=== PATIENT | female | born 1950 | race Caucasian/White ===

== ENCOUNTER 2019-10-20 14:18 | Emergency (ER) | payer MEDICARE, MEDICAID ==
[2019-10-20 14:27] VITALS: BP 118/56; PULSE 48
[2019-10-20] MEDS ORDERED: Midazolam 1 MG/ML 2 ML SDV IVPUSH ONE (14:30)
[2019-10-20] MEDS ORDERED: Succinylcholine 200 MG/10 ML MDV IV ONE (14:30)
[2019-10-20] MEDS ORDERED: Etomidate 2 MG/ML 20 ML SDV IVPUSH ONE (14:30)
[2019-10-20] MEDS ORDERED: Propofol 200 MG/20 ML SDV IVPUSH ONE ×2 (14:30→14:57)
[2019-10-20] MEDS ORDERED: Midazolam 1 MG/ML 2 ML SDV ONE (14:43)
[2019-10-20] MEDS ORDERED: Midazolam Oral Soln 10 MG/5 ML UD Cup PO ONE (14:57)
[2019-10-20] MEDS ORDERED: Sodium Chloride 0.9% 1,000 ML IV SCH ×3 (15:00→15:45)
--- NOTE | 2019-10-20 15:09 | CR ---
INDICATIONS: Shortness of air. Post intubation. TECHNIQUE: Chest 1 AP portable supine view. COMPARISON: Chest radiograph 10/04/2016. FINDINGS: Endotracheal tube is directed toward the right lateral wall of the trachea and terminates 4.8 cm above the irving. No pneumothorax or definite pleural effusion. There is opacity at the left lung base which is similar in appearance. Lungs are otherwise clear. Cardiac and mediastinal contours are otherwise unchanged. Upper abdomen and osseous structures as imaged show no acute abnormality. IMPRESSION: 1. Endotracheal tube terminates 4.8 cm above the irving. This is directed toward the right lateral wall of the trachea and may need to be slightly repositioned. 2. Left basilar opacity is similar in appearance. Lungs are otherwise clear. Dictated by Ronny Gómez MD @ 10/20/2019 3:08:08 PM Dictated by: Ronny Gómez MD @ 10/20/2019 15:08:14 (Electronically Signed)
--- NOTE | 2019-10-20 15:13 | EDM.PDOC ---
ED HPI GENERAL MEDICAL PROBLEM - General Chief Complaint: Respiratory Problem Stated Complaint: ASPIRATION Time Seen by Provider: 10/20/19 14:30 Source of Information: Reports: EMS History Limitations: Reports: Altered Mental Status (obtunded!) - History of Present Illness INITIAL COMMENTS - FREE TEXT/NARRATIVE: This 69 year old female was admitted from [facility] via EMS at approx. 2:15PM due to possible aspiration and not breathing well. Her color was reported to be cyanotic. She was reported to have a oxygen sat of 90% on non-rebreather mask but was as low as 86%. She is a DNI by record but is NOT a DNI. She has gurgling breath sounds and if she has not aspirated she soon will. Because she is NOT and DNI, we will protect her airway for now and place her on a vent for an hour and see how she does. My understanding that she is a stone of the court so, I will assume that decision. Onset: Sudden Severity: Severe (Unable to protect her airway.) Improves with: Reports: None Worsens with: Reports: None Context: Reports: Other (Altered mental status and is now intubated for airway protection.) Associated Symptoms: Reports: Shortness of Breath - Related Data Allergies Allergy/AdvReac Type Severity Reaction Status Date / Time erythromycin base Allergy Cannot Verified 09/29/16 20:04 Remember dust Allergy Cannot Uncoded 09/29/16 20:04 Remember Home Meds: Home Meds Acetaminophen [Tylenol] 325 mg PO DAILY PRN 09/20/16 [History] Calcium Citrate/Vitamin D3 [Calcium Citrate-Vit D Caplet] 1 each PO BID [History] Docusate Sodium [Colace] 200 mg PO BEDTIME 09/20/16 [History] Levothyroxine Sodium [Tirosint] 75 mcg PO DAILY 09/20/16 [History] Polyethylene Glycol 3350 [Miralax] 17 gm PO DAILY 09/20/16 [History] Pantoprazole [ProTONIX] 40 mg PO BIDAC #60 tab.cr 09/21/16 [Rx] Amoxicillin/Potassium Clav [Augmentin 875-125 Tablet] 1 each PO BID #14 tablet 10/05/16 [Rx] ClonazePAM [KlonoPIN] 2 mg PO TID #15 tablet 10/05/16 [Rx] Linezolid [Zyvox] 600 mg PO Q12H #14 tablet 10/05/16 [Rx] Past Medical History HEENT History: Reports: None Cardiovascular History: Reports: None Respiratory History: Reports: None Gastrointestinal History: Reports: Other (See Below) Other Gastrointestinal History: Dysphagia. Hypo-osmolality and Hyponatremia Genitourinary History: Reports: UTI, Recurrent [employer] History: Reports: None Musculoskeletal History: Reports: Other (See Below) Other Musculoskeletal History: Generalized muscle weakness Neurological History: Reports: Cerebral Palsy, Other (See Below) Other Neuro History: Convulsions Psychiatric History: Reports: Other (See Below) Other Psychiatric History: Profound intellectual disabilities. Sequelae following unspecified cerebrovascular disease Endocrine/Metabolic History: Reports: None Hematologic History: Reports: Iron Deficiency Immunologic History: Reports: None Oncologic (Cancer) History: Reports: None Dermatologic History: Reports: Other (See Below) Other Dermatologic History: MRSA - Infectious Disease History Infectious Disease History: Reports: MRSA - Past Surgical History Head Surgeries/Procedures: Reports: None HEENT Surgical History: Reports: None Cardiovascular Surgical History: Reports: None Respiratory Surgical History: Reports: None Endocrine Surgical History: Reports: None Social & Family History - Family History Family Medical History: Noncontributory HEENT: Reports: None Cardiac: Reports: None Respiratory: Reports: None GI: Reports: None : Reports: None OBGYN: Reports: None Musculoskeletal: Reports: None Neurological: Reports: None Psychiatric: Reports: None Endocrine/Metabolic: Reports: None Hematologic: Reports: None Immunologic: Reports: None Dermatologic: Reports: None Oncologic: Reports: None - Caffeine Use Caffeine Use: Reports: None ED ROS GENERAL - Review of Systems Review Of Systems: Unable To Obtain (The patient is obtunded and is intubated at this time so I am unable to do ROS) Reason Not Obtained: Patient is intubated and is obtunded. ED EXAM, GENERAL - Physical Exam Exam: See Below Exam Limited By: Other (obtunded and is intubated) General Appearance: Obtunded Ears: Normal External Exam, Normal Canal, Hearing Grossly Normal, Normal TMs Ear Exam: Bilateral Ear: Auricle Normal, Canal Normal, TM normal Nose: Other (nasal contusion noted on bridge of nose.) Throat/Mouth: Normal Lips, Other (right upper tooth is cracked on arrival to ED) Head: Atraumatic Neck: Normal Inspection, Supple, Other (unable to further exam neck due to patient's current condition.) Cardiovascular: No Edema, No Gallop, No JVD, No Rub, JVD, Bradycardia (44-48 beats/minute), Other (unable to further access due to patient current condition) Peripheral Pulses: 2+: Carotid (L), Carotid (R), Dorsalis Pedis (L), Dorsalis Pedis (R) GI/Abdominal: Soft, Non-Tender, No Abnormal Bruit, No Mass (Female) Exam: Normal External Exam, Other (Cornejo cath placed.) Rectal (Female) Exam: Deferred Back Exam: Normal Inspection Extremities: Normal Inspection, Other (unable to further evaluate due to patient current status, intubated and sedated.). No: Pedal Edema, Joint Swelling, Arm Pain ED RESPIRATORY PROCEDURES - Endotracheal Intubation ET Intubation Indication: Airway Protection Preparation: Suction, Balloon Tested, BVM Set Up, Difficult Airway Equip Pre-Oxygenation: Assisted with BVM, 100% FiO2 Anesthesia Meds: Etomidate (20mg IV), Succinylcholine (100mg IV Push.) Placement: Orotracheal, Cuffed Cords Visualized: Yes ETT Size In mm: 7.5 Number of Attempts: 1 Confirmed By: CO2 Indicator, Bilateral Breath Sounds, Chest Xray Tube Secured By: By RT Endotracheal Intubation Comment: The intubation was done using a GlideScope with a number 3 blade. First pass without problems. Course - Vital Signs Text/Narrative:: I spoke with the patient's legal guardian, Mr. Andres Dailey at 3:20PM. He states that he wants her to stay intubated and placed on a vent and that if her heart stops beating to not resuscitate (CPR). I talked with Dr. Madera in the ED at [facility] at 3:45PM. I discussed the case with him. He has agreed to accept Ms. No in transfer via air ambulance. The fight team will be notified. Last Recorded V/S: Last Vital Signs Temp Pulse 48 L 10/20/19 14:22 Resp 22 H 10/20/19 14:22 BP 118/56 L 10/20/19 14:22 Pulse Ox 15 L 10/20/19 14:22 - Orders/Labs/Meds Orders: Active Orders 24 hr Category Date Time Status EKG 12 Lead [EKG Documentation Completion] [RC] STAT Care 10/20/19 14:56 Active Chest 1V Frontal [CR] Stat Exams 10/20/19 14:47 Taken B-TYPE NATRIURETIC PEPTIDE,BNP [CHEM] Stat Lab 10/20/19 14:56 Ordered CBC WITH AUTO DIFF [HEME] Stat Lab 10/20/19 14:56 Ordered COMPREHENSIVE METABOLIC PN,CMP [CHEM] Stat Lab 10/20/19 14:56 Ordered MAGNESIUM [CHEM] Stat Lab 10/20/19 14:56 Ordered TROPONIN I [CHEM] Stat Lab 10/20/19 14:56 Ordered UA RFX MOO AND CULT IF INDIC [URIN] Stat Lab 10/20/19 14:56 Ordered Meds: Medications Discontinued Medications Generic Name Dose Route Start Last Admin Trade Name Freq PRN Reason Stop Dose Admin Propofol Confirm 10/20/19 14:42 Diprivan 50 Ml Administered 10/20/19 14:43 Dose 50 mls @ as directed .ROUTE .STK-MED ONE Midazolam HCl Confirm 10/20/19 14:43 Versed 1 Mg/Ml Administered 10/20/19 14:44 Dose 4 mg .ROUTE .STK-MED ONE Departure - Departure Time of Disposition: 15:55 Disposition: DC/Tfer to Biology Laboratory Assistant [facility] 61 Condition: Critical Clinical Impression: Airway intubation performed without difficulty Aspiration into airway Qualifiers: Encounter type: initial encounter Qualified Code(s): T17.908A - Unspecified foreign body in respiratory tract, part unspecified causing other injury, initial encounter - Discharge Information *PRESCRIPTION DRUG MONITORING PROGRAM REVIEWED*: Yes *COPY OF PRESCRIPTION DRUG MONITORING REPORT IN PATIENT SANTA: Yes Sepsis Event Note - Evaluation Sepsis Screening Result: No Definite Risk - Focused Exam Vital Signs: Vital Signs Pulse Resp BP Pulse Ox 10/20/19 14:22 48 L 22 H 118/56 L 15 L Date Exam was Performed: 10/20/19 Time Exam was Performed: 15:00 - My Orders Last 24 Hours: My Active Orders 10/20/19 14:47 Chest 1V Frontal [CR] Stat 10/20/19 14:56 EKG 12 Lead [EKG Documentation Completion] [RC] STAT B-TYPE NATRIURETIC PEPTIDE,BNP [CHEM] Stat CBC WITH AUTO DIFF [HEME] Stat COMPREHENSIVE METABOLIC PN,CMP [CHEM] Stat MAGNESIUM [CHEM] Stat TROPONIN I [CHEM] Stat UA RFX MOO AND CULT IF INDIC [URIN] Stat - Assessment/Plan Last 24 Hours: My Active Orders 10/20/19 14:47 Chest 1V Frontal [CR] Stat 10/20/19 14:56 EKG 12 Lead [EKG Documentation Completion] [RC] STAT B-TYPE NATRIURETIC PEPTIDE,BNP [CHEM] Stat CBC WITH AUTO DIFF [HEME] Stat COMPREHENSIVE METABOLIC PN,CMP [CHEM] Stat MAGNESIUM [CHEM] Stat TROPONIN I [CHEM] Stat UA RFX MOO AND CULT IF INDIC [URIN] Stat
[2019-10-20 15:18] LABS: BLOOD UREA NITROGEN,BUN 25 mg/dL (7.0-18.0); CARBON DIOXIDE,CO2 29.2 mmol/L (21.0-32.0); CHLORIDE,CL 106 mmol/L (98-107); GLUCOSE RANDOM 102 mg/dL (74-106); POTASSIUM,K 5.3 mmol/L (3.5-5.1); SODIUM,NA 143 mmol/L (136-145)
== END 2019-10-20 16:20 ==
LOC: MW.ED 14:18
DX: T17.908A Unspecified foreign body in respiratory tract, part unspecified causing other injury, initial encounter (principal); G80.9 Cerebral palsy, unspecified; Z88.1 Allergy status to other antibiotic agents; Z91.09 Other allergy status, other than to drugs and biological substances
CPT/HCPCS: 31500; 36415; 43752; 51702; 71045; 80053; 81001; 83735; 83880; 84484; 85025; 87086; 87088; 87186; 93005; 94002; 96361; 96374; 99285; J0330; J2250; J2704; J3490; J7030

== ENCOUNTER 2022-05-01 19:05 | Emergency (ER) | payer MEDICARE, MEDICAID ==
[2022-05-01] MEDS ORDERED: LORazepam 2 MG/ML SDV IM ONE (19:24)
[2022-05-01] MEDS ORDERED: Lidocaine 1% 5 ML VIAL INJECT ONE (19:54)
[2022-05-01] MEDS ORDERED: Bupivacaine 0.5% 10 ML SDV INJECT ONE (19:54)
[2022-05-01 20:51] VITALS: BP 145/76; PULSE 86
== END 2022-05-01 20:40 | disposition home or self-care (01) ==
LOC: MW.ED 19:05
DX: S91.115A Laceration without foreign body of left lesser toe(s) without damage to nail, initial encounter (principal); Z88.1 Allergy status to other antibiotic agents; Z91.048 Other nonmedicinal substance allergy status; Z79.899 Other long term (current) drug therapy; W26.8XXA Contact with other sharp object(s), not elsewhere classified, initial encounter
CPT/HCPCS: 12001; 73620; 96372; 99283; J2060; J3490

== ENCOUNTER 2022-10-23 11:06 | Emergency (ER) | payer MEDICARE, MEDICAID ==
[2022-10-23] MEDS ORDERED: Bacitracin Oint 28.35 GM Tube TOP STA (11:21)
[2022-10-23 11:26] VITALS: BP 108/85; PULSE 73
[2022-10-23] MEDS ORDERED: Bacitracin Oint 1 GM U/D Packet TOP ONE (11:32)
[2022-10-23] MEDS ORDERED: Bacitracin Oint 1 GM U/D Packet ONE (11:33)
== END 2022-10-23 13:20 | disposition home or self-care (01) ==
LOC: MW.ED 11:06
DX: S00.01XA Abrasion of scalp, initial encounter (principal); Z88.1 Allergy status to other antibiotic agents; Z91.048 Other nonmedicinal substance allergy status; W05.0XXA Fall from non-moving wheelchair, initial encounter
CPT/HCPCS: 70450; 70450-26; 99283

== ENCOUNTER 2023-04-01 20:21 | Emergency (ER) | payer MEDICARE, MEDICAID ==
[2023-04-01] MEDS ORDERED: Sodium Chloride 0.9% 1,000 ML IV ONE (20:35)
[2023-04-01] MEDS ORDERED: Ondansetron 4 MG/2 ML SDV IVPUSH ONE (20:35)
[2023-04-01] MEDS ORDERED: hydrALAZINE 20 MG/ML SDV IVPUSH ONE (20:44)
[2023-04-01 21:16] LABS: BILIRUBIN,URINE NEGATIVE (NEGATIVE); COLOR,URINE YELLOW; GLUCOSE,URINE NEGATIVE (NEGATIVE); KETONES,URINE NEGATIVE (NEGATIVE); LEUKOCYTE ESTERASE,URINE SMALL (NEGATIVE); NITRITE,URINE NEGATIVE (NEGATIVE); OCCULT BLOOD,URINE NEGATIVE (NEGATIVE); PROTEIN,URINE NEGATIVE (NEGATIVE); UROBILINOGEN,URINE 0.2 EU/dL (<2.0)
[2023-04-01] MEDS ORDERED: Piperacillin/Tazobactam 4.5 GM in Sodium Chloride 0.9% 100 ML IV ONE (21:19)
[2023-04-01 21:24] LABS: APPEARANCE,URINE HAZY; BACTERIA,URINE 1+ (NEGATIVE); EPITHELIAL CELLS,URINE RARE (NONE-FEW); RBC,URINE 0-1 (0-2/HPF)
[2023-04-01 21:43] LABS: BASOPHILS PERCENT AUTO 0.5 % (0.0-1.5); EOSINOPHILS ABSOLUTE AUTO 0.4 K/uL (0.0-0.7); EOSINOPHILS PERCENT AUTO 5.9 % (0.0-7.0); HEMATOCRIT 38.8 % (36.0-46.0); HEMOGLOBIN 13.4 g/dL (12.0-16.0); LYMPHOCYTES PERCENT AUTO 27.5 % (16.0-40.0); MEAN CORPUSCULAR HEMOGLOBIN 30.2 pg (27.0-32.0); MEAN CORPUSCULAR HGB CONC 34.5 g/dL (31.0-37.0); MEAN CORPUSCULAR VOLUME 87.4 fL (80.0-98.0); MONOCYTES ABSOLUTE AUTO 0.8 K/uL (0.0-0.8); MONOCYTES PERCENT AUTO 11.4 % (0.0-15.0); NEUTROPHILS PERCENT AUTO 54.7 % (48.0-80.0); NRBC ABSOLUTE 0 K/uL; PLATELET COUNT,PLT 277 K/uL (150-400); RED BLOOD CELL COUNT 4.44 M/uL (4.30-5.90)
[2023-04-01] MEDS ORDERED: Midazolam 5 MG/ML SDV IVPUSH PRN ×2 (22:10→22:11)
[2023-04-01 22:11] LABS: ALANINE AMINOTRANSFERASE,ALT 19 IU/L (14-63); ALKALINE PHOSPHATASE 110 U/L (46-116); ASPARTATE AMNIOTRANSFERASE,AST 16 IU/L (15-37); BILIRUBIN TOTAL 0.5 mg/dL (0.2-1.0); BLOOD UREA NITROGEN,BUN 9 mg/dL (7.0-18.0); CALCIUM 9.1 mg/dL (8.5-10.1); CARBON DIOXIDE,CO2 31.8 mmol/L (21.0-32.0); CHLORIDE,CL 93 mmol/L (98-107); CREATININE 0.9 mg/dL (0.6-1.0); GLUCOSE RANDOM 114 mg/dL (74-106); POTASSIUM,K 4.3 mmol/L (3.5-5.1); PROTEIN TOTAL,TP 8.2 g/dL (6.4-8.2); SODIUM,NA 133 mmol/L (136-145)
[2023-04-01 22:15] LABS: ESTIMATED GFR 67 mL/min (>60)
[2023-04-01] MEDS ORDERED: Iopamidol 755 MG/ML 500 ML Multipack Bottle IVPUSH ONE (22:53)
[2023-04-02 00:04] VITALS: BP 127/55; PULSE 82
== END 2023-04-02 00:31 | disposition home or self-care (01) ==
LOC: MW.ED 20:21
DX: J69.0 Pneumonitis due to inhalation of food and vomit (principal); K21.9 Gastro-esophageal reflux disease without esophagitis; Z88.1 Allergy status to other antibiotic agents; Z91.048 Other nonmedicinal substance allergy status
CPT/HCPCS: 36415; 71045; 71260; 74177; 80053; 81001; 83605; 83735; 83880; 84484; 85025; 93005; 96361; 96365; 96375; 99284; J0360; J2250; J2405; J2543; J3490; J7030; Q9967